=== PATIENT | male | born 1990 | race Two or more races ===

== ENCOUNTER 2018-02-20 13:54 | Emergency (ER) | payer MEDICAID ==
[~2018-02-20] VITALS: Ht 165.1 cm; Wt 64.0 kg
[2018-02-20 17:00] VITALS: BP 130/87
== END 2018-02-20 18:10 | disposition left against medical advice (07) ==
LOC: ER 15:35
DX: M54.6 Pain in thoracic spine (principal); M54.2 Cervicalgia; F17.200 Nicotine dependence, unspecified, uncomplicated; F12.10 Cannabis abuse, uncomplicated; V43.52XA Car driver injured in collision with other type car in traffic accident, initial encounter; Y93.89 Activity, other specified; Y92.488 Other paved roadways as the place of occurrence of the external cause
CPT/HCPCS: 99281